=== PATIENT | male | born 1985 | race African-American/Black ===

== ENCOUNTER 2016-11-17 12:37 | Emergency (ER) | payer OTHER ==
[~2016-11-17] VITALS: Ht 188 cm; Wt 75.0 kg
[2016-11-17 12:39] VITALS: BP 132/67; PULSE 52; RESP 20; TEMP 98.4; O2SAT 97
--- NOTE | 2016-11-17 12:53 | PD ---
Physical Exam Time Seen by Provider: 12:51 Narrative 31 y/o male here with lacerations to R thumb and R index finger sustained today. Vital signs reviewed. Seen at triage desk. Awaiting bed placement. Data Data Last Documented VS Vital Signs Date Time Temp Pulse Resp B/P Pulse Ox O2 Delivery O2 Flow Rate FiO2 11/17/16 12:39 98.4 52 20 132/67 97 Room Air [facility] Medical Record Reviewed: Yes Supervised Visit with NAOMIE: Chaka Sawant Nov 17, 2016 12:53
--- NOTE | 2016-11-17 13:07 | PD ---
HPI . right thumb laceration Chief Complaint: Laceration/Skin Injury Time Seen by Provider: 13:07 Travel History International Travel<30 days: No Contact w/Intl Traveler<30days: No Traveled to known affect area: No History of Present Illness HPI 31-year-old male here with complaints of right thumb laceration that he sustained a piece of metal. His tetanus status unknown. He has no complaint of pain or any other issues. He does also have a small abrasion to his right index finger, but he tells me that is very small and he took care of it. [facility] Past Medical History Medical History: Denies Significant Hx Social History Alcohol Use: Yes Tobacco Use: Yes Allergies-Medications (Allergen,Severity, Reaction): Coded Allergies: No Known Allergies (Unverified , 11/17/16) Review of Systems General / Constitutional: No: Fever Eyes: No: Visual changes HENT: No: Headaches Cardiovascular: No: Chest Pain or Discomfort Respiratory: No: Shortness of Breath Gastrointestinal: No: Abdominal Pain Genitourinary: No: Dysuria Musculoskeletal: No: Pain Skin: Positive Other (thumb laceration ), No Rash Neurologic: No: Weakness Psychiatric: No: Depression Endocrine: No: Polydipsia Hematologic/Lymphatic: No: Easy Bruising Physical Exam Narrative GENERAL: AAO x 3, no acute distress, Well-nourished, well-developed patient. SKIN: Warm and dry. No visible rashes or bruising. Small 8 mm superficial laceration over the interphalangeal joint of the right thumb. Bleeding is controlled HEAD: Normocephalic and atraumatic. EYES: No scleral icterus. No injection or drainage. ENT: No nasal drainage noted. Mucous membranes pink. Airway patent. NECK: Supple, trachea midline. No JVD. CARDIOVASCULAR: Regular rate and rhythm without murmurs, gallops, or rubs. RESPIRATORY: Breath sounds equal bilaterally. No accessory muscle use. No rhonchi or rales. GASTROINTESTINAL: Visual inspection normal EXTREMITIES: No cyanosis or edema. All digits move freely in the right hand. Capillary refill is normal. BACK: No obvious deformity. 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 Data Data Last Documented VS Vital Signs Date Time Temp Pulse Resp B/P Pulse Ox O2 Delivery O2 Flow Rate FiO2 11/17/16 12:39 98.4 52 20 132/67 97 Room Air Orders Tetanus/Diphtheria Tox Adult (Tetanus/Di (11/17/16 13:15) MDM Medical Decision Making Medical Screen Exam Complete: Yes Emergency Medical Condition: Yes Medical Record Reviewed: Yes Differential Diagnosis Superficial laceration of the right thumb, abrasion, need for tetanus vaccine Narrative Course 31-year-old male here with complaints of thumb laceration of the right hand. This is a very superficial laceration and could truly be repaired with a Band- Aid. However, patient says it is bleeding a lot and he would like to have it fixed as he uses his hands a lot. Dermabond used for repair. Patient tolerated without incident. tetanus provided. We discussed signs of infection. Patient verbalized understanding of instructions, questions were answered, and thanked me for their care. I advised them if their condition worsens, please return to the nearest emergency room for further care. Procedures Procedure Narrative LACERATION LOCATION: Right thumb interphalangeal joint LENGTH: 8 mm NUMBER OF STITCHES/BRIDGET: Dermabond REPAIR: The area of the laceration was prepped with Betadine and saline. The wound was copiously irrigated and explored without evidence of foreign body, tendon injury or neurovascular injury. The wound was closed using dermabond. This was a single layer repair. A sterile dressing was applied. The patient was advised to keep the dressing clean and dry. Patient tolerated the procedure well. Diagnosis Primary Impression: Laceration of thumb Qualified Code: S61.011A - Laceration of right thumb without foreign body without damage to nail, initial encounter Patient Instructions: General Instructions Additional Instructions: Keep area clean and dry. Watch for signs of infection: fever, redness, swelling, warmth, pus or drainage , red streaks around the cut, and increased pain from the area. If you received a tetanus shot, you may experience tenderness at the injection site. This is normal. Med/Other Pt SpecificInfo: No Change to Meds Disposition: 01 DISCHARGE HOME Condition: Stable Laura Aguirre Nov 17, 2016 13:07
[2016-11-17] MEDS ORDERED: TETANUS/DIPHTHERIA TOXOID ADULT 0.5 ML VIAL IM ONE (13:15)
== END 2016-11-17 14:00 | disposition home or self-care (01) ==
LOC: NEPK 12:37
DX: S61.011A Laceration without foreign body of right thumb without damage to nail, initial encounter (principal); Z23 Encounter for immunization; W26.8XXA Contact with other sharp object(s), not elsewhere classified, initial encounter
CPT/HCPCS: 12001; 90471; 90714